=== PATIENT | male | born 1985 | race Caucasian/White ===

== ENCOUNTER 2017-12-12 13:59 | Emergency (ER) | payer BC ==
[~2017-12-12] VITALS: Ht 180.3 cm; Wt 169.0 kg
[2017-12-12 15:58] LABS: BASOPHILS % (AUTO) 0.3 % (0-1); EOSINOPHILS # (AUTO) 0.2 X10'3 (0-0.9); EOSINOPHILS % (AUTO) 2.1 % (0-6); HEMATOCRIT 49.2 % (42.0-52.0); HEMOGLOBIN 16.7 g/dl (14.0-17.9); LYMPHOCYTES # (AUTO) 1.8 X10'3 (1.1-4.8); LYMPHOCYTES % (AUTO) 20.2 % (21-51); MEAN CORPUSCULAR HEMOGLOBIN 28.2 PG (27.0-31.0); MEAN CORPUSCULAR HGB CONC 33.9 % (33.0-36.5); MEAN CORPUSCULAR VOLUME 83.3 FL (78-98); MEAN PLATELET VOLUME 8.5 FL (7.4-10.4); MONOCYTES # (AUTO) 0.5 X10'3 (0-0.9); MONOCYTES % (AUTO) 5.9 % (2-12); NEUTROPHILS # (AUTO) 6.5 X10'3 (1.8-7.7); NEUTROPHILS % (AUTO) 71.5 % (42-75); PLATELET COUNT 204 X10'3 (140-440); RED BLOOD COUNT 5.91 X10'6 (4.70-6.10); RED CELL DISTRIBUTION WIDTH 14.1 % (11.5-14.5); WHITE BLOOD COUNT 9.1 X10'3 (4.5-11.0)
[2017-12-12 16:16] VITALS: BP 144/83
== END 2017-12-12 16:17 | disposition home or self-care (01) ==
LOC: ER 14:00
DX: I80.9 Phlebitis and thrombophlebitis of unspecified site (principal); F17.200 Nicotine dependence, unspecified, uncomplicated
CPT/HCPCS: 36415; 85025; 93971; 99285

== ENCOUNTER 2017-12-23 14:31 | Emergency (ER) | payer BC ==
[~2017-12-23] VITALS: Ht 180.3 cm; Wt 165.9 kg
[2017-12-23] MEDS ORDERED: SULF1TAB49 PO (17:01)
[2017-12-23 17:42] VITALS: BP 142/74
== END 2017-12-23 17:43 | disposition home or self-care (01) ==
LOC: ER 14:32
DX: I80.02 Phlebitis and thrombophlebitis of superficial vessels of left lower extremity (principal); L03.116 Cellulitis of left lower limb; F17.200 Nicotine dependence, unspecified, uncomplicated
CPT/HCPCS: 76881; 76882; 99284

== ENCOUNTER 2017-12-28 09:06 | Outpatient (CLI) | payer BC ==
[~2017-12-28 09:06] MED LIST: SULF1TAB49 PO
[2017-12-28] MEDS ORDERED: AMOX-422 PO (10:01)
[2017-12-28] MEDS ORDERED: ASPI-41 PO (10:01)
[2017-12-28] MEDS ORDERED: LACT1CAP65 PO (10:02)
== END 2017-12-28 10:46 | disposition home or self-care (01) ==
LOC: WOUND CARE 09:06
PROVIDERS: ATTEND Surgery
DX: I80.8 Phlebitis and thrombophlebitis of other sites (principal); F17.200 Nicotine dependence, unspecified, uncomplicated
CPT/HCPCS: 99214